=== PATIENT | male | born 1960 | race Caucasian/White ===

== ENCOUNTER 2019-05-28 09:45 | Day surgery (SDC) | payer BC, OTHER ==
[2019-05-28] MEDS ORDERED: Lactated Ringers 1,000 ML IV SCH (10:15)
[2019-05-28] MEDS ORDERED: Midazolam 1 MG/ML 2 ML SDV ONE (10:54)
[2019-05-28] MEDS ORDERED: fentaNYL 100 MCG/2 ML SDV ONE (10:54)
[2019-05-28] MEDS ORDERED: Propofol 200 MG/20 ML SDV ONE (10:55)
--- NOTE | 2019-05-28 15:21 | OR ---
DATE OF PROCEDURE: 05/28/2019 SURGEON: Mohit Barlow MD PREOPERATIVE DIAGNOSIS: Positive FIT test. POSTOPERATIVE DIAGNOSES: Diverticulosis, 2 small distal rectal polyps adjacent to each other. PROCEDURES: Colonoscopy to the cecum with biopsy resection of 2 small distal rectal polyps next to each other. Sent to the laboratory as one specimen. ANESTHESIA: IV anesthesia with monitored anesthesia care. INDICATION: This 58-year-old white male is here for a colonoscopy because of a positive FIT test. He says his last colonoscopic exam was done 7 years ago. I counseled him for the procedure, including risks and alternatives, and he gave his informed consent to proceed. DESCRIPTION OF PROCEDURE: The patient was placed in the left lateral decubitus position. IV anesthesia was administered by the anesthesia service. Time-out was held. A rectal exam was performed, which was unremarkable. The flexible video Olympus colonoscope was introduced through his anus, up his rectum and out his colon, all the way to the cecum. En route, we saw several left-sided diverticula. There was no bleeding or inflammation associated with any of them. Once the cecum was reached, the scope was slowly withdrawn examining the mucosa throughout. No additional mucosal abnormalities were noted until we reached the rectum. Here, when we retroflexed the scope, we saw a couple of small polyps in the distal rectum. These were removed with the biopsy forceps and sent to the laboratory as one specimen. The scope was straightened and removed. He tolerated the procedure well. Mohit Bralow MD /[id number]
== END 2019-05-28 12:40 | disposition home or self-care (01) ==
LOC: JP.SDS 09:45
PROVIDERS: ATTEND Surgery
DX: K62.1 Rectal polyp (principal); K57.31 Diverticulosis of large intestine without perforation or abscess with bleeding; I10 Essential (primary) hypertension; E78.5 Hyperlipidemia, unspecified; E11.9 Type 2 diabetes mellitus without complications; F17.200 Nicotine dependence, unspecified, uncomplicated; E66.9 Obesity, unspecified; Z68.35 Body mass index [BMI] 35.0-35.9, adult; Z88.0 Allergy status to penicillin
CPT/HCPCS: 88305; J2250; J2704; J3010; J7120

== ENCOUNTER 2021-03-26 14:55 | Observation (INO) | payer OTHER ==
--- NOTE | 2021-03-26 16:00 | EDM.PDOC ---
ED HPI GENERAL MEDICAL PROBLEM - General Chief Complaint: Cardiovascular Problem Stated Complaint: A-FIB Time Seen by Provider: 03/26/21 15:36 Source of Information: Reports: Patient History Limitations: Reports: No Limitations - History of Present Illness INITIAL COMMENTS - FREE TEXT/NARRATIVE: 60-year-old male with history of afib, coronary artery bypass surgery on March 05 in [place] with concerns of atrial fibrillation. He reports that he felt himself going to A. fib this afternoon. He feels the abnormal rhythm in his chest. He has no chest pain. He does report increased dyspnea that is typical when he is in A. fib, he has difficult time walking across the room without starting to lose his breath. He is managed on metoprolol. He reports that he did have some issues with atrial fibrillation postoperatively but this resolved and he never required cardioversion. He is anticoagulated on Pradaxa. - Related Data Allergies Allergy/AdvReac Type Severity Reaction Status Date / Time Penicillins Allergy Other Verified 03/26/21 15:14 Home Meds: Home Meds Rosuvastatin [Crestor] 20 mg PO DAILY 05/24/19 [History] lisinopriL [Lisinopril] 20 mg PO DAILY 05/24/19 [History] metFORMIN [Glucophage] 1,000 mg PO BIDMEALS 05/24/19 [History] Clopidogrel [Plavix] 75 mg PO DAILY 03/26/21 [History] Cyclobenzaprine [Flexeril] 10 mg PO TID PRN 03/26/21 [History] Dabigatran [Pradaxa] 150 mg PO BID 03/26/21 [History] Metoprolol Succinate 50 mg PO BID 03/26/21 [History] Pantoprazole Sodium [Protonix] 40 mg PO DAILY 03/26/21 [History] Sotalol [Betapace, Sorine] 80 mg PO BID 03/26/21 [History] oxyCODONE HCl/Acetaminophen [Oxycodone-Acetaminophen 5-325] 1 each PO Q6HR 03/26/21 [History] Past Medical History Cardiovascular History: Reports: Afib, Bypass, CAD, High Cholesterol, Hypertension Respiratory History: Reports: COPD Gastrointestinal History: Reports: Other (See Below) Other Gastrointestinal History: + fit test Genitourinary History: Reports: Other (See Below) Other Genitourinary History: ED Neurological History: Reports: None Psychiatric History: Reports: None Endocrine/Metabolic History: Reports: Diabetes, Type II, Obesity/BMI 30+ Hematologic History: Reports: None Immunologic History: Reports: None Oncologic (Cancer) History: Reports: None Dermatologic History: Reports: None - Infectious Disease History Infectious Disease History: Reports: Measles, Mumps - Past Surgical History HEENT Surgical History: Reports: Detached Retina Other HEENT Surgeries/Procedures: 2006 Cardiovascular Surgical History: Reports: Coronary Artery Bypass Other Cardiovascular Surgeries/Procedures: 3 GI Surgical History: Reports: Colonoscopy Social & Family History - Family History Family Medical History: No Pertinent Family History - Tobacco Use Tobacco Use Status *Q: Former Tobacco User Used Tobacco, but Quit: Yes Month/Year Tobacco Last Used: Jan 2020 - Caffeine Use Caffeine Use: Reports: Coffee - Recreational Drug Use Recreational Drug Use: No ED ROS GENERAL - Review of Systems Review Of Systems: See Below Constitutional: Reports: No Symptoms HEENT: Reports: No Symptoms Respiratory: Reports: Shortness of Breath Cardiovascular: Reports: Palpitations Endocrine: Reports: No Symptoms GI/Abdominal: Reports: No Symptoms : Reports: No Symptoms Musculoskeletal: Reports: No Symptoms Skin: Reports: No Symptoms Neurological: Reports: No Symptoms Psychiatric: Reports: No Symptoms Hematologic/Lymphatic: Reports: No Symptoms Immunologic: Reports: No Symptoms ED EXAM, GENERAL - Physical Exam Exam: See Below Exam Limited By: No Limitations General Appearance: Alert, No Apparent Distress Ears: Normal External Exam Nose: Normal Inspection Throat/Mouth: Normal Inspection Head: Atraumatic, Normocephalic Neck: Normal Inspection Respiratory/Chest: Lungs Clear Cardiovascular: Tachycardia, Other (Well-healed midline sternotomy scar) GI/Abdominal: Soft, Non-Tender Back Exam: Normal Inspection Extremities: Normal Inspection Neurological: Alert, Oriented Psychiatric: Normal Affect, Normal Mood Skin Exam: Warm, Dry ED CARDIOLOGY PROCEDURES - Cardioversion Indication: Atrial Fibrillation with RVR Patient Counseled: Yes Informed Consent Obtained: Yes Cardioversion Energy: Other (150 followed by 175 joules) Mode: Biphasic Successful: No (2 attempts at cardioversion were unsuccessful) Number of Attempts: 2 Patient Condition Post Cardioversion: Unchanged #1 Interpretation Rhythm: A-Fib (A. fib with RVR. Rate is 139. Lateral T wave inversions, nonspecific change, no other ischemic change. No prior tracing for comparison.) #2 Interpretation EKG Date: 03/26/21 Rhythm: NSR EKG Interpretation Comments: Sinus bradycardia. Rate is 59. Normal intervals. Lateral T wave inversion, no other ST segment or T wave changes indicative of ischemia. When compared to prior tracing A. fib is replaced by sinus rhythm. No prior tracings predating today's date to compare T wave changes. Course - Vital Signs Last Recorded V/S: Last Vital Signs Temp 35.8 C L 03/26/21 19:08 Pulse 63 03/26/21 19:23 Resp 18 03/26/21 19:23 BP 84/44 L 03/26/21 19:23 Pulse Ox 95 03/26/21 19:08 - Orders/Labs/Meds Orders: Active Orders 24 hr Category Date Time Status Sodium Chloride 0.9% [Normal Saline] 1,000 ml Med 03/26/21 19:13 Active IV .BOLUS EKG 12 Lead [EK] Routine Ther 03/26/21 15:59 Ordered EKG 12 Lead [EK] Routine Ther 03/26/21 18:16 Ordered Medication Orders Sodium Chloride (Normal Saline) 1,000 mls @ 999 drops/hr IV .BOLUS ONE Stop: 03/27/21 10:13 Last Admin: 03/26/21 19:15 Dose: 999 drops/hr Documented by: PREILOR Labs: Laboratory Tests 03/26/21 03/26/21 03/26/21 Range/Units 15:51 15:51 18:39 WBC 8.7 (4.5-11.0) K/uL RBC 3.82 L (4.30-5.90) M/uL Hgb 10.5 L (12.0-15.0) g/dL Hct 33.2 L (40.0-54.0) % MCV 87 (80-98) fL MCH 28 (27-31) pg MCHC 32 (32-36) % Plt Count 423 H (150-400) K/uL Neut % (Auto) 59.2 (36-66) % Lymph % (Auto) 28.4 (24-44) % Waller % (Auto) 6.9 H (2-6) % Eos % (Auto) 4.7 H (2-4) % Baso % (Auto) 0.8 (0-1) % Sodium 140 (140-148) mmol/L Potassium 4.3 (3.6-5.2) mmol/L Chloride 105 (100-108) mmol/L Carbon Dioxide 26 (21-32) mmol/L Anion Gap 9.5 (5.0-14.0) mmol/L BUN 25 H (7-18) mg/dL Creatinine 1.3 (0.8-1.3) mg/dL Est Cr Clr Drug Dosing 66.58 mL/min Estimated GFR (MDRD) 56 L (>60) Glucose 109 H (74-106) mg/dL Calcium 8.4 L (8.5-10.1) mg/dL Magnesium 1.8 (1.8-2.4) mg/dL Troponin I < 0.017 (0.000-0.056) ng/mL Meds: Medications Generic Name Dose Route Start Last Admin Trade Name Freq PRN Reason Stop Dose Admin Sodium Chloride 1,000 mls @ 999 drops/hr 03/26/21 19:13 03/26/21 19:15 Normal Saline IV 03/27/21 10:13 999 drops/hr .BOLUS ONE Administration Discontinued Medications Generic Name Dose Route Start Last Admin Trade Name Freq PRN Reason Stop Dose Admin Amiodarone HCl 150 mg 03/26/21 17:26 03/26/21 17:41 Amiodarone 150 Mg/3 Ml Sdv IVPUSH 03/26/21 17:27 150 mg ONETIME ONE Administration Magnesium Sulfate 2 gm/ Premix 50 mls @ 25 mls/hr 03/26/21 16:43 03/26/21 17:08 IV 03/26/21 18:42 25 mls/hr ONETIME ONE Administration Metoprolol Tartrate 5 mg 03/26/21 16:27 03/26/21 16:36 Metoprolol Tartrate 5 Mg/5 Ml Sdv IVPUSH 03/26/21 16:28 5 mg ONETIME ONE Administration Metoprolol Tartrate 5 mg 03/26/21 16:44 03/26/21 17:06 Metoprolol Tartrate 5 Mg/5 Ml Sdv IVPUSH 03/26/21 16:45 5 mg ONETIME ONE Administration Propofol Confirm 03/26/21 16:25 Propofol 200 Mg/20 Ml Sdv Administered 03/26/21 16:26 Dose 200 mg .ROUTE .STK-MED ONE - Re-Assessments/Exams Free Text/Narrative Re-Assessment/Exam: This is a 60-year-old male with history of coronary artery disease and recent three-vessel CABG on 03/05 as well as paroxysmal A. fib anticoagulated on Pradaxa who presents with concerns of atrial fibrillation. On my initial exam he is found to be in A. fib with RVR. Rates as high as the 140s to 150s. Pressure was preserved. Remainder of vitals are unremarkable. Endorses mild dyspnea but no chest pain. EKG obtained and reveals A. fib with RVR. Screening labs obtained, overall unremarkable. Magnesium was 1.8 so this was repleted in the setting of his arrhythmia. Given he was seemingly poorly tolerating A. fib from a symptom standpoint, was anticoagulated, clear onset of symptoms this afternoon proceeded with sedation and cardioversion. I did attempt to touch base with his cardiac surgeon prior to this, however was told by the drop hammer set up operator at [facility] in [place] that there is currently not a cardiac surgeon insulation machine operator. Synchronized cardioversion was performed twice. We were able to convert him only briefly into sinus rhythm. We then attempted a rate control strategy with 2 doses of Lopressor to no effect. On review of his outside records it appears that he was taken off of amiodarone this past week. He was administered an IV bolus of this. Unfortunately following administration he felt quite poorly and was noted to be hypotensive with systolics in the high 60s and 70s. Noted to be quite uncomfortable appearing and diaphoretic during this time. He is currently being administered an IV fluid bolus. Repeat ECG following cardioversion verifies normal sinus rhythm with lateral T wave inversions but no obvious ischemic change. Chest x-ray is unrevealing Bedside, informal utitz-[id number] ultrasound was performed and shows intact left ventricular ejection fraction, some moderate RV enlargement, no significant pericardial effusion. Noted to have some mild diffuse pulmonary B-lines and small bilateral pleural effusions, difficult to interpret the meaning of these in the setting of his recent cardiac surgery. He is sating appropriately on room air. At this point, his blood pressure is stabilized somewhat in the 70s systolically and he appears more comfortable. An IV fluid bolus is running. We have added on a troponin test, this will admittedly be difficult to interpret in the setting of his A. fib with RVR with known coronary disease as well as his cardioversions. He is being signed out to my colleague at the end of my clinical shift pending final reassessment and disposition. We have discussed his case with the hospitalist. If troponin will is acceptable for further trending and observation and we see stabilization of his blood pressures we will admit him to our facility. We will otherwise attempt to transfer him back to [facility], but currently they have no available beds. 03/26/21 19:09 Free Text/Narrative Re-Assessment/Exam: BP improved. Patient looks significantly improved. Troponin negative. Will be admitted to our hospitalist for further work up and management. 03/26/21 19:34 Departure - Departure Time of Disposition: 19:35 Disposition: Admitted As Inpatient 64 Clinical Impression: Atrial fibrillation with RVR Referrals: Wilfrido Carcamo MD [Primary Care Provider] - Forms: ED Department Discharge Critical Care Note - Critical Care Note Total Time (mins): 65 Comments: 65 minutes of critical care time were spent diagnosing and treating A. fib with RVR as well as undifferentiated hypotension/shock state required IV fluids, repeated bedside assessments, and ultrasound assessment of cardiac function. This is exclusive of separate billable procedures. Sepsis Event Note (ED) - Focused Exam Vital Signs: Vital Signs Temp Pulse Pulse Resp BP BP Pulse Ox 03/26/21 19:23 63 18 84/44 L 03/26/21 19:08 35.8 C L 58 L 18 77/45 L 95 03/26/21 18:40 58 L 16 72/12 L 95 03/26/21 18:33 59 L 22 H 68/12 L 95 03/26/21 18:20 59 L 18 60/10 L 96 03/26/21 17:56 123 H 15 127/98 H 96 03/26/21 17:06 139 H 114/85 03/26/21 16:36 139 H 130/70 03/26/21 16:34 67 17 103/70 99 03/26/21 15:45 119 H 17 124/73 98 03/26/21 15:10 36.6 C 138 H 18 136/93 H 98 - My Orders Last 24 Hours: My Active Orders 03/26/21 15:59 EKG 12 Lead [EK] Routine 03/26/21 18:16 EKG 12 Lead [EK] Routine 03/26/21 19:13 Sodium Chloride 0.9% [Normal Saline] 1,000 ml IV .BOLUS - Assessment/Plan Last 24 Hours: My Active Orders 03/26/21 15:59 EKG 12 Lead [EK] Routine 03/26/21 18:16 EKG 12 Lead [EK] Routine 03/26/21 19:13 Sodium Chloride 0.9% [Normal Saline] 1,000 ml IV .BOLUS
[2021-03-26] MEDS ORDERED: Propofol 200 MG/20 ML SDV ONE (16:25)
[2021-03-26] MEDS ORDERED: Metoprolol Tartrate 5 MG/5 ML SDV IVPUSH ONE ×2 (16:27→16:44)
[2021-03-26] MEDS ORDERED: Magnesium Sulfate/Water 2 GM in Premix Bag 1 BAG IV ONE (16:43)
[2021-03-26] MEDS ORDERED: Amiodarone 150 MG/3 ML SDV IVPUSH ONE (17:26)
--- NOTE | 2021-03-26 19:01 | CRLCR ---
For Patients: As a result of the Century Cures Act, medical imaging exams and procedure reports are released immediately into your electronic medical record. You may view this report before your referring provider. If you have questions, please contact your health care provider. INDICATION: Dyspnea. TECHNIQUE: Chest 1 view. COMPARISON: None. FINDINGS: Cardiovascular and mediastinum: Heart size and vasculature are normal in caliber and appearance. Lungs and pleural spaces: Lungs are clear. No sign of infiltrate or mass. No sign of pleural effusion. No pneumothorax. Bones and soft tissues: No significant findings. IMPRESSION: No acute or significant findings. Dictated by Maxx Iniguez MD @ 03/26/2021 6:59:59 PM (Electronically Signed)
[2021-03-26] MEDS ORDERED: Sodium Chloride 0.9% 1,000 ML IV ONE (19:13)
--- NOTE | 2021-03-26 20:00 | PCM.HP.2 ---
H&P History of Present Illness - General Date of Service: 03/26/21 Admit Problem/Dx: Admission Diagnosis/Problem Admission Diagnosis/Problem Paroxysmal atrial fibrillation with rapid ventricular response Source of Information: Patient History Limitations: Reports: No Limitations - History of Present Illness Initial Comments - Free Text/Narative: CC: I couldn't breath HPI: Artur presents to the emergency room today with dyspnea and palpitations. Symptoms started suddenly this afternoon after a home health visit and some physical therapy. He had mild shortness of breath at rest and at least moderate dyspnea with any exertion. He felt that his heart was beating irregularly and jumping around inside of his chest. He did have a CABG fall 3 weeks ago and has some residual pain in his chest but this is been improving each day. The pain was not any worse today at the time of the episode. He did not have any nausea or vomiting. He had been feeling well up until the incident. He has not had dyspnea or exertional chest pain since the surgery. He did call the nurse line and they recommended emergency room evaluation. He has not had any fevers or chills. Work-up in the emergency room revealed atrial fibrillation with a rapid v entricular rate and heart rates in the 120s and 130s. With the acute onset and the fact that the patient was anticoagulated cardioversion was recommended as primary treatment. The patient did convert to sinus rhythm but only temporarily. When he returned atrial fibrillation the decision to give a miodarone was made. After he received a 150 mg IV bolus he became hypotensive, diaphoretic and dyspneic. The patient did convert to a sinus rhythm. His symptoms slowly abated. His blood pressure improved after a liter of normal saline was given via bolus. His troponin was normal. He will be admitted for observation and monitoring of his cardiac rhythm. - Related Data Allergies/Adverse Reactions: Allergies Allergy/AdvReac Type Severity Reaction Status Date / Time Penicillins Allergy Other Verified 03/26/21 15:14 Home Medications: Home Meds Rosuvastatin [Crestor] 20 mg PO DAILY 05/24/19 [History] lisinopriL [Lisinopril] 20 mg PO DAILY 05/24/19 [History] metFORMIN [Glucophage] 1,000 mg PO BIDMEALS 05/24/19 [History] Clopidogrel [Plavix] 75 mg PO DAILY 03/26/21 [History] Cyclobenzaprine [Flexeril] 10 mg PO TID PRN 03/26/21 [History] Dabigatran [Pradaxa] 150 mg PO BID 03/26/21 [History] Metoprolol Succinate 50 mg PO BID 03/26/21 [History] Pantoprazole Sodium [Protonix] 40 mg PO DAILY 03/26/21 [History] Sotalol [Betapace, Sorine] 80 mg PO BID 03/26/21 [History] oxyCODONE HCl/Acetaminophen [Oxycodone-Acetaminophen 5-325] 1 each PO Q6HR 03/26/21 [History] Past Medical History Cardiovascular History: Reports: Afib, Bypass, CAD, High Cholesterol, Hypertension Respiratory History: Reports: COPD Gastrointestinal History: Reports: Other (See Below) Other Gastrointestinal History: + fit test Genitourinary History: Reports: Other (See Below) Other Genitourinary History: ED Neurological History: Reports: None Psychiatric History: Reports: None Endocrine/Metabolic History: Reports: Diabetes, Type II, Obesity/BMI 30+ Hematologic History: Reports: None Immunologic History: Reports: None Oncologic (Cancer) History: Reports: None Dermatologic History: Reports: None - Infectious Disease History Infectious Disease History: Reports: Measles, Mumps - Past Surgical History HEENT Surgical History: Reports: Detached Retina Other HEENT Surgeries/Procedures: 2006 Cardiovascular Surgical History: Reports: Coronary Artery Bypass Other Cardiovascular Surgeries/Procedures: 3 GI Surgical History: Reports: Colonoscopy Social & Family History - Family History Family Medical History: No Pertinent Family History - Tobacco Use Tobacco Use Status *Q: Former Tobacco User Used Tobacco, but Quit: Yes Month/Year Tobacco Last Used: Jan 2020 - Caffeine Use Caffeine Use: Reports: Coffee - Recreational Drug Use Recreational Drug Use: No H&P Review of Systems - Review of Systems: Review Of Systems: See Below Free Text/Narrative: A complete 12 point review of systems was obtained. Pertinent positives and negatives are noted in the history of present illness. All other systems were reviewed and were negative except as noted. Exam - Exam Exam: See Below - Vital Signs Vital Signs: Last Vital Signs Temp 35.8 C L 03/26/21 19:08 Pulse 62 03/26/21 19:55 Resp 15 03/26/21 19:55 BP 93/50 L 03/26/21 19:55 Pulse Ox 95 03/26/21 19:08 Weight: 120.202 kg - Exam Quality Assessment: No: Supplemental Oxygen General: Alert, Oriented, Cooperative. No: Mild Distress HEENT: Conjunctiva Clear, Mucosa Moist & Pettibone. No: Scleral Icterus Neck: Supple, Trachea Midline. No: JVD Lungs: Clear to Auscultation, Normal Respiratory Effort Cardiovascular: Regular Rate, Regular Rhythm, Systolic Murmur (Soft systolic ejection murmur best at left upper and lower sternal border) GI/Abdominal Exam: Normal Bowel Sounds, Soft, Non-Tender, No Distention Back Exam: Normal Inspection, Full Range of Motion Extremities: No Pedal Edema. No: Increased Warmth Peripheral Pulses: 2+: Dorsalis Pedis (L), Dorsalis Pedis (R) Skin: Warm, Dry, Wound (Healing midline incision from his CABG as well as four small subxiphoid incisions that are healing well) Neuro Extensive - Mental Status: Alert, Oriented x3, Nl Response to Commands Neuro Extensive - Motor, Sensory, Reflexes: No: Dysarthria, Abnormal Motor, Tremor Psychiatric: Alert, Normal Affect - Patient Data Lab Results Last 24 hrs: Laboratory Results - last 24 hr 03/26/21 03/26/21 03/26/21 Range/Units 15:51 15:51 18:39 WBC 8.7 (4.5-11.0) K/uL RBC 3.82 L (4.30-5.90) M/uL Hgb 10.5 L (12.0-15.0) g/dL Hct 33.2 L (40.0-54.0) % MCV 87 (80-98) fL MCH 28 (27-31) pg MCHC 32 (32-36) % Plt Count 423 H (150-400) K/uL Neut % (Auto) 59.2 (36-66) % Lymph % (Auto) 28.4 (24-44) % [place] % (Auto) 6.9 H (2-6) % Eos % (Auto) 4.7 H (2-4) % Baso % (Auto) 0.8 (0-1) % Sodium 140 (140-148) mmol/L Potassium 4.3 (3.6-5.2) mmol/L Chloride 105 (100-108) mmol/L Carbon Dioxide 26 (21-32) mmol/L Anion Gap 9.5 (5.0-14.0) mmol/L BUN 25 H (7-18) mg/dL Creatinine 1.3 (0.8-1.3) mg/dL Est Cr Clr Drug Dosing 66.58 mL/min Estimated GFR (MDRD) 56 L (>60) Glucose 109 H (74-106) mg/dL Calcium 8.4 L (8.5-10.1) mg/dL Magnesium 1.8 (1.8-2.4) mg/dL Troponin I < 0.017 (0.000-0.056) ng/mL Result Diagrams: 03/26/21 15:51 03/26/21 15:51 Imaging Impressions Last 24 hrs: Chest x-ray-image personally reviewed-lungs are clear with no mass, infiltrate or effusion. Heart size is normal. He is status post CABG with sternotomy wires #1 Interpretation EKG Date: 03/26/21 Rhythm: A-Fib Rate (Beats/Min): 139 [place]: Normal P-Wave: Variable QRS: Normal ST-T: Depressed (Lateral leads) QT: Normal SC/PQ Interval: n/a Comparison: Change From Previous EKG (Now in atrial fibrillation with rapid ventricular response) #2 Interpretation EKG Date: 03/26/21 Rhythm: NSR Rate (Beats/Min): 59 [place]: Normal P-Wave: Present QRS: Normal ST-T: Normal QT: Normal SC/PQ Interval: Normal Comparison: Change From Previous EKG (Now in sinus rhythm and the lateral ST depressions have resolved) Sepsis Event Note - Focused Exam Vital Signs: Vital Signs Temp Pulse Pulse Resp BP BP Pulse Ox 03/26/21 19:55 62 15 93/50 L 03/26/21 19:53 62 10 L 93/50 L 03/26/21 19:37 62 15 91/50 L 03/26/21 19:23 63 18 84/44 L 03/26/21 19:08 35.8 C L 58 L 18 77/45 L 95 03/26/21 18:40 58 L 16 72/12 L 95 03/26/21 18:33 59 L 22 H 68/12 L 95 03/26/21 18:20 59 L 18 60/10 L 96 03/26/21 17:56 123 H 15 127/98 H 96 03/26/21 17:06 139 H 114/85 03/26/21 16:36 139 H 130/70 03/26/21 16:34 67 17 103/70 99 03/26/21 15:45 119 H 17 124/73 98 03/26/21 15:10 36.6 C 138 H 18 136/93 H 98 *Q Meaningful Use (ADM) - VTE Risk Assess *Q Each Risk Factor Represents 1 Point: Obesity ( BMI > 25 kg/m2) Total Score 1 Point Risk Factors: 1 Each Risk Factor Represents 2 Points: Age 60 - 74 Years Total Score 2 Point Risk Factors: 2 Each Risk Factor Represents 3 Points: None Total Score 3 Point Risk Factors: 0 Each Risk Factor Represents 5 Points: None Total Score 5 Point Risk Factors: 0 Venous Thromboembolism Risk Factor Score *Q: 3 - Problem List (1) Atrial fibrillation with RVR SNOMED Code(s): 635338453436508 ICD Code: I48.91 - UNSPECIFIED ATRIAL FIBRILLATION Status: Acute Current Visit: Yes (2) Coronary artery disease SNOMED Code(s): 03328035 ICD Code: I25.10 - ATHSCL HEART DISEASE OF [place] CORONARY ARTERY W/O ANG PCTRS Status: Chronic Current Visit: Yes Qualifiers: Coronary Disease-Associated Artery/Lesion type: [place] artery [place] vs. transplanted heart: [place] heart Associated angina: without angina Qualified Code(s): I25.10 - Atherosclerotic heart disease of [place] coronary artery without angina pectoris (3) Type 2 diabetes mellitus SNOMED Code(s): 02394590 ICD Code: E11.9 - TYPE 2 DIABETES MELLITUS WITHOUT COMPLICATIONS Status: Chronic Current Visit: Yes Qualifiers: Diabetes mellitus rn long term care insulin use: without half-way use Diabetes mellitus complication status: without complication Qualified Code(s): E11.9 - Type 2 diabetes mellitus without complications (4) Obesity with body mass index greater than 30 SNOMED Code(s): 572916053 ICD Code: E66.9 - OBESITY, UNSPECIFIED Status: Chronic Current Visit: Yes Problem List Initiated/Reviewed/Updated: Yes Orders Last 24hrs: Active Orders 24 hr Category Date Time Status Patient Status Manage Transfer [TRANSFER] Routine ADT 03/26/21 19:56 Ordered Sodium Chloride 0.9% [Normal Saline] 1,000 ml Med 03/26/21 19:13 Active IV .BOLUS Resuscitation Status Routine Resus Stat 03/26/21 19:57 Ordered EKG 12 Lead [EK] Routine Ther 03/26/21 15:59 Ordered EKG 12 Lead [EK] Routine Ther 03/26/21 18:16 Ordered Medication Orders Sodium Chloride (Normal Saline) 1,000 mls @ 999 drops/hr IV .BOLUS ONE Stop: 03/27/21 10:13 Last Admin: 03/26/21 19:15 Dose: 999 drops/hr Documented by: PREILOR Assessment/Plan Comment:: ASSESSMENT AND PLAN - Paroxysmal atrial fibrillation with rapid ventricular response-abrupt onset this afternoon. He is status post CABG about 3 weeks ago and recently taken off his amiodarone. Temporarily responded to cardioversion. Back in sinus rhythm after dose of amiodarone but he did become hypotensive after the IV dose. I suspect the atrial fibrillation is due to some residual information from his recent surgery. -Restart oral amiodarone -Continue beta-cristi and sotalol -Continue anticoagulation Coronary artery disease status post CABG-he had coronary bypass surgery on March 05. Had been doing well since surgery with progressive improvements in his functional status and no angina or dyspnea. -Continue medical management Type 2 diabetes mellitus-controlled. -Continue Metformin Obesity-BMI of 35 Maintenance issues - -DVT prophylaxis-dabigatran -GI prophylaxis-not indicated -Nutrition-regular -Mcdonald catheter-not indicated CODE STATUS -full Admission justification -this patient will be admitted for observation to initiate amiodarone and monitor heart rhythm and rate Disposition -I anticipate discharge home after the hospital stay Primary care physician - Dr Dona Hinton M.D. - Mortality Measure Prognosis:: Good
[2021-03-26] MEDS ORDERED: Ondansetron 4 MG/2 ML SDV IV PRN (21:49)
[2021-03-26] MEDS ORDERED: LORazepam 2 MG/ML SDV IVPUSH PRN (21:49)
[2021-03-26] MEDS ORDERED: Ondansetron 4 MG Tab.DIS PO PRN (21:49)
[2021-03-26] MEDS ORDERED: Metoprolol Succinate 50 MG Tab.ER PO SCH (21:49)
[2021-03-26] MEDS ORDERED: Cyclobenzaprine 10 MG Tab PO PRN (21:49)
[2021-03-26] MEDS ORDERED: Acetaminophen 325 MG Tab PO PRN (21:49)
[2021-03-26] MEDS ORDERED: Sotalol 80 MG Tab PO SCH (21:49)
[2021-03-26] MEDS ORDERED: Acetaminophen/oxyCODONE 325-5 MG Tab PO SCH (22:00)
[2021-03-26] MEDS ORDERED: Acetaminophen/oxyCODONE 325-5 MG Tab PO PRN (23:24)
[2021-03-26] MEDS: Amiodarone 200 MG Tab PO SCH (23:46)
[2021-03-27] MEDS ORDERED: Pantoprazole 40 MG Tab.CR PO SCH (07:30)
[2021-03-27] MEDS ORDERED: metFORMIN 500 MG Tab PO SCH (08:00)
[2021-03-27] MEDS ORDERED: Clopidogrel 75 MG Tab PO SCH (09:00)
[2021-03-27] MEDS ORDERED: Lisinopril 20 MG Tab PO SCH (09:00)
[2021-03-27] MEDS ORDERED: Rosuvastatin 10 MG Tab PO SCH (09:00)
[2021-03-27] MEDS: Amiodarone 200 MG Tab PO SCH (09:07)
--- NOTE | 2021-03-27 09:11 | PCM.DCSUM1 ---
Discharge Summary - Hospital Course Brief History: 60-year-old male with history of type 2 diabetes mellitus, coronary artery disease status post coronary artery bypass less than 1 month ago who presented with palpitations and dyspnea. He was admitted for management of paroxysmal atrial fibrillation with a rapid ventricular response. Diagnosis: Stroke: No - Discharge Data Discharge Date: 03/27/21 Discharge Disposition: Home, Self-Care 01 Condition: Good - Referral to Home Health Primary Care Physician: Wilfrido Carcamo MD - Discharge Diagnosis/Problem(s) (1) Atrial fibrillation with RVR SNOMED Code(s): 407079846376109 ICD Code: I48.91 - UNSPECIFIED ATRIAL FIBRILLATION Status: Acute (2) Coronary artery disease SNOMED Code(s): 57631603 ICD Code: I25.10 - ATHSCL HEART DISEASE OF [place] CORONARY ARTERY W/O ANG PCTRS Status: Chronic Qualifiers: Coronary Disease-Associated Artery/Lesion type: [place] artery [place] vs. transplanted heart: [place] heart Associated angina: without angina Qualified Code(s): I25.10 - Atherosclerotic heart disease of [place] coronary artery without angina pectoris (3) Type 2 diabetes mellitus SNOMED Code(s): 92290935 ICD Code: E11.9 - TYPE 2 DIABETES MELLITUS WITHOUT COMPLICATIONS Status: Chronic Qualifiers: Diabetes mellitus joint terminal attack controller insulin use: without joint terminal attack controller use Diabetes mellitus complication status: without complication Qualified Code(s): E11.9 - Type 2 diabetes mellitus without complications (4) Obesity with body mass index greater than 30 SNOMED Code(s): 094478491 ICD Code: E66.9 - OBESITY, UNSPECIFIED Status: Chronic - Patient Summary/Data Hospital Course: Artur presented to the emergency room last night with dyspnea and palpitations. He was found to be in rapid atrial fibrillation. He responded to cardioversion but only temporarily. He was loaded with IV amiodarone and became hypotensive, diaphoretic and short of breath. Symptoms did improve after little bit of fluid and a little bit of time. He was admitted for observation for cardiac monitoring and initiation of oral amiodarone. He did receive an oral dose that evening after admission. Overnight there were no significant difficulties. He has remained in sinus rhythm with a rate around 60. His QTC is just over 400. He feels much better this morning. Vital signs of all been stable. I did review the case with cardiology at [facility] in [place]. They were in agreement with getting him back on the amiodarone which she had stopped several days ago. He will be on 200 mg twice a day and he has a prescription large enough to get him through his follow-up appointment with the cardiothoracic surgery folks. He is stable and safe for discharge home. - Patient Instructions Diet: Regular Diet as Tolerated Activity: As Tolerated Showering/Bathing: May Shower Other/Special Instructions: 1. You were in the hospital for management of paroxysmal atrial fibrillation. Your heart has returned to a normal rhythm with a normal rate following administration of IV amiodarone. I suspect this abnormal heart rhythm was related to some residual inflammation following your coronary artery bypass surgery and going off the amiodarone a few days ago. I would recommend additional therapy with amiodarone, at least until your follow- up with your cardiothoracic surgeon in just over 2 weeks. 2. Continue your other home medications as previously prescribed. - Discharge Plan *PRESCRIPTION DRUG MONITORING PROGRAM REVIEWED*: Not Applicable *COPY OF PRESCRIPTION DRUG MONITORING REPORT IN PATIENT TORREY: Not Applicable Prescriptions/Med Rec: Amiodarone [Cordarone] 200 mg PO BID #40 tablet Home Medications: Home Meds Rosuvastatin [Crestor] 20 mg PO DAILY 05/24/19 [History] lisinopriL [Lisinopril] 20 mg PO DAILY 05/24/19 [History] metFORMIN [Glucophage] 1,000 mg PO BIDMEALS 05/24/19 [History] Clopidogrel [Plavix] 75 mg PO DAILY 03/26/21 [History] Cyclobenzaprine [Flexeril] 10 mg PO TID PRN 03/26/21 [History] Dabigatran [Pradaxa] 150 mg PO BID 03/26/21 [History] Metoprolol Succinate 50 mg PO BID 03/26/21 [History] Pantoprazole Sodium [Protonix] 40 mg PO DAILY 03/26/21 [History] Sotalol [Betapace] 80 mg PO BID 03/26/21 [History] Amiodarone [Cordarone] 200 mg PO BID #40 tablet 03/27/21 [Rx] oxyCODONE HCl/Acetaminophen [Oxycodone-Acetaminophen 5-325] 1 each PO Q6HR PRN #0 03/27/21 [Rx] Oxygen Therapy Mode: Room Air Patient Handouts: Amiodarone tablets, Atrial Fibrillation, [id number] Referrals: Wilfrido Carcamo MD [Primary Care Provider] - (Follow-up as needed if symptoms do not continue to get better or if they get worse) - Discharge Summary/Plan Comment DC Time >30 min.: Yes Total # of Minutes for Discharge Time: 40 - coordinate treatment and follow up with cardiothoracic surgeon - Patient Data Vitals - Most Recent: Last Vital Signs Temp 35.4 C L 03/27/21 08:35 Pulse 51 L 03/27/21 08:35 Resp 16 03/27/21 08:35 BP 125/70 03/27/21 08:35 Pulse Ox 97 03/27/21 08:35 Weight - Most Recent: 120.202 kg Lab Results - Last 24 hrs: Laboratory Results - last 24 hr 03/26/21 03/26/21 03/26/21 Range/Units 15:51 15:51 18:39 WBC 8.7 (4.5-11.0) K/uL RBC 3.82 L (4.30-5.90) M/uL Hgb 10.5 L (12.0-15.0) g/dL Hct 33.2 L (40.0-54.0) % MCV 87 (80-98) fL MCH 28 (27-31) pg MCHC 32 (32-36) % Plt Count 423 H (150-400) K/uL Neut % (Auto) 59.2 (36-66) % Lymph % (Auto) 28.4 (24-44) % [place] % (Auto) 6.9 H (2-6) % Eos % (Auto) 4.7 H (2-4) % Baso % (Auto) 0.8 (0-1) % Sodium 140 (140-148) mmol/L Potassium 4.3 (3.6-5.2) mmol/L Chloride 105 (100-108) mmol/L Carbon Dioxide 26 (21-32) mmol/L Anion Gap 9.5 (5.0-14.0) mmol/L BUN 25 H (7-18) mg/dL Creatinine 1.3 (0.8-1.3) mg/dL Est Cr Clr Drug Dosing 66.58 mL/min Estimated GFR (MDRD) 56 L (>60) Glucose 109 H (74-106) mg/dL Calcium 8.4 L (8.5-10.1) mg/dL Magnesium 1.8 (1.8-2.4) mg/dL Troponin I < 0.017 (0.000-0.056) ng/mL SARS-CoV-2 RNA (APOLLO) (NEGATIVE) 03/26/21 Range/Units 22:07 WBC (4.5-11.0) K/uL RBC (4.30-5.90) M/uL Hgb (12.0-15.0) g/dL Hct (40.0-54.0) % MCV (80-98) fL MCH (27-31) pg MCHC (32-36) % Plt Count (150-400) K/uL Neut % (Auto) (36-66) % Lymph % (Auto) (24-44) % [place] % (Auto) (2-6) % Eos % (Auto) (2-4) % Baso % (Auto) (0-1) % Sodium (140-148) mmol/L Potassium (3.6-5.2) mmol/L Chloride (100-108) mmol/L Carbon Dioxide (21-32) mmol/L Anion Gap (5.0-14.0) mmol/L BUN (7-18) mg/dL Creatinine (0.8-1.3) mg/dL Est Cr Clr Drug Dosing mL/min Estimated GFR (MDRD) (>60) Glucose (74-106) mg/dL Calcium (8.5-10.1) mg/dL Magnesium (1.8-2.4) mg/dL Troponin I (0.000-0.056) ng/mL SARS-CoV-2 RNA (APOLLO) Negative (NEGATIVE) Med Orders - Current: Current Medications Acetaminophen (Acetaminophen 325 Mg Tab) 650 mg PO Q4H PRN PRN Reason: Pain (Mild 1-3)/fever Last Admin: 03/26/21 23:23 Dose: 650 mg Documented by: Amiodarone HCl (Amiodarone 200 Mg Tab) 200 mg PO BID [facility] Last Admin: 03/27/21 09:07 Dose: 200 mg Documented by: Clopidogrel Bisulfate (Clopidogrel 75 Mg Tab) 75 mg PO DAILY [facility] Cyclobenzaprine HCl (Cyclobenzaprine 10 Mg Tab) 10 mg PO TID PRN PRN Reason: Spasms Last Admin: 03/26/21 23:22 Dose: 10 mg Documented by: Dabigatran (Dabigatran 150 Mg Cap) 150 mg PO BID [facility] Last Admin: 03/27/21 01:21 Dose: Not Given Documented by: Sodium Chloride (Normal Saline) 1,000 mls @ 999 drops/hr IV .BOLUS ONE Stop: 03/27/21 10:13 Last Admin: 03/26/21 19:15 Dose: 999 drops/hr Documented by: Lisinopril (Lisinopril 20 Mg Tab) 20 mg PO DAILY [facility] Lorazepam (Lorazepam 2 Mg/Ml Sdv) 0.5 mg IVPUSH Q4H PRN PRN Reason: Nausea/Vomiting Metformin HCl (Metformin 500 Mg Tab) 1,000 mg PO BIDMEALS [facility] Last Admin: 03/27/21 08:38 Dose: Not Given Documented by: Metoprolol Succinate (Metoprolol Succinate 50 Mg Tab.Er) 50 mg PO BID [facility] Last Admin: 03/26/21 23:45 Dose: 50 mg Documented by: Ondansetron HCl (Ondansetron 4 Mg/2 Ml Sdv) 4 mg IV Q6H PRN PRN Reason: Nausea/Vomiting Ondansetron HCl (Ondansetron 4 Mg Tab.Dis) 4 mg PO Q6H PRN PRN Reason: Nausea able to take PO Oxycodone/Acetaminophen (Acetaminophen/Oxycodone 325-5 Mg Tab) 1 tab PO Q6HR PRN PRN Reason: Pain (moderate 4-6) Pantoprazole Sodium (Pantoprazole 40 Mg Tab.Cr) 40 mg PO ACBREAKFAST [facility] Last Admin: 03/27/21 08:37 Dose: Not Given Documented by: Rosuvastatin Calcium (Rosuvastatin 10 Mg Tab) 20 mg PO DAILY [facility] Senna/Docusate Sodium (Docusate Sodium/Sennosides 50-8.6 Mg Tab) 1 tab PO BID PRN PRN Reason: Constipation Sotalol HCl (Sotalol 80 Mg Tab) 80 mg PO BID [facility] Last Admin: 03/26/21 23:46 Dose: 80 mg Documented by: Discontinued Medications Amiodarone HCl (Amiodarone 150 Mg/3 Ml Sdv) 150 mg IVPUSH ONETIME ONE Stop: 03/26/21 17:27 Last Admin: 03/26/21 17:41 Dose: 150 mg Documented by: Magnesium Sulfate 2 gm/ Premix 50 mls @ 25 mls/hr IV ONETIME ONE Stop: 03/26/21 18:42 Last Admin: 03/26/21 17:08 Dose: 25 mls/hr Documented by: Influenza Virus Vaccine (Flu Vacc [id number](6mos Up)/Pf 60 Mcg/0.5 Ml Syringe) 60 mcg IM .ONCE ONE Stop: 03/27/21 09:01 Metoprolol Tartrate (Metoprolol Tartrate 5 Mg/5 Ml Sdv) 5 mg IVPUSH ONETIME ONE Stop: 03/26/21 16:28 Last Admin: 03/26/21 16:36 Dose: 5 mg Documented by: Metoprolol Tartrate (Metoprolol Tartrate 5 Mg/5 Ml Sdv) 5 mg IVPUSH ONETIME ONE Stop: 03/26/21 16:45 Last Admin: 03/26/21 17:06 Dose: 5 mg Documented by: Oxycodone/Acetaminophen (Acetaminophen/Oxycodone 325-5 Mg Tab) 1 tab PO Q6HR JESSE Last Admin: 03/27/21 08:38 Dose: Not Given Documented by: Propofol (Propofol 200 Mg/20 Ml Sdv) Confirm Administered Dose 200 mg .ROUTE .STK-MED ONE Stop: 03/26/21 16:26
== END 2021-03-27 09:38 | disposition home or self-care (01) ==
LOC: JP.ED 14:55 → JP.MS 19:56
PROVIDERS: ADMIT Internal Medicine; ATTEND Internal Medicine
DX: I48.0 Paroxysmal atrial fibrillation (principal); I25.10 Atherosclerotic heart disease of native coronary artery without angina pectoris; E78.00 Pure hypercholesterolemia, unspecified; I10 Essential (primary) hypertension; J44.9 Chronic obstructive pulmonary disease, unspecified; E11.9 Type 2 diabetes mellitus without complications; E66.9 Obesity, unspecified; Z79.84 Long term (current) use of oral hypoglycemic drugs; Z87.891 Personal history of nicotine dependence; Z88.0 Allergy status to penicillin; Z79.899 Other long term (current) drug therapy; Z79.01 Long term (current) use of anticoagulants; Z20.822 Contact with and (suspected) exposure to COVID-19
CPT/HCPCS: 36415; 71045; 80048; 83735; 84484; 85025; 87635; 90686; 92960; 93005; 96365; 96366; 96375; 96376; 99285; A9270; G0378; J0282; J2704; J3475; J3490; J7030; U0002